=== PATIENT | female | born 1940 | race Caucasian/White ===

== ENCOUNTER 2021-01-26 08:12 | Inpatient (IN) ==
[2021-01-26] MEDS ORDERED: ONDANSETRON 4 MG/2 ML VIAL IV STA (09:12)
[2021-01-26] MEDS ORDERED: PANTOPRAZOLE INJ 80 MG in SODIUM CHLORIDE 0.9% 100 ML IV STA (09:12)
[2021-01-26] MEDS ORDERED: SODIUM CHLORIDE 0.9% 1,000 ML IV STA (09:12)
[2021-01-26 09:18] LABS: Basophils # 0.1 10*3/uL (0.0-0.2); Basophils % 0.6 % (0.0-0.8); Eosinophils # 0.2 10*3/uL (0.0-0.87); Hematocrit 34.6 VOL% (35.7-47.0); Immature Granulocytes % 0.3 %; Immature Granulocytes Absolute 0.02 #; Lymphocytes # 1.8 10*3/uL (1.4-4.0); Lymphocytes % 22.5 % (21.3-54.2); Mean Corpuscular HGB Conc 31.8 GM/DL (32-36); Mean Corpuscular Volume 87.8 FL (87-102); Mean Platelet Volume 9.8 FL (9.6-12.0); Monocytes % 6.9 % (1.7-12.7); Neutrophils % 67.7 % (38.7-73.9); Platelet Count 273 T/CUMM (130-400); Red Blood Count 3.94 MC/CUMM (3.8-5.5); Red Cell Distribution Width 15.6 % (9.3-17.3)
[2021-01-26 09:27] LABS: INR 1.4; PT Patient Result 14.5 SECS (9.8-11.9); Partial Thromboplastin Time 53.4 SECS (23.9-33.8)
[2021-01-26] MEDS ORDERED: PANTOPRAZOLE 40 MG VIAL IV ONE ×2 (09:30→09:31)
[2021-01-26 09:48] LABS: Albumin 3.2 G/DL (3.4-5.0); Calcium 9.3 MG/DL (8.5-10.1); Osmolality,Calculated 284.3 MOS/KG (273-304); Potassium 3.3 MMOL/L (3.5-5.1); Total Protein 6.9 G/DL (6.4-8.3)
[2021-01-26] MEDS ORDERED: GLUCAGON 1 MG VIAL IM PRN (10:56)
[2021-01-26] MEDS ORDERED: ONDANSETRON 4 MG/2 ML VIAL IV PRN (10:56)
[2021-01-26] MEDS ORDERED: DEXTROSE 50% 25 GM/50 ML VIAL IV PRN (10:56)
[2021-01-26] MEDS ORDERED: SODIUM CHLORIDE 0.9% 1,000 ML IV PRN (11:01)
[2021-01-26] MEDS: LACTATED RINGERS 1,000 ML IV SCH ×2 (13:50→22:12)
[2021-01-26] MEDS: PANTOPRAZOLE INJ 200 MG in SODIUM CHLORIDE 0.9% 250 ML IV SCH (13:50)
[2021-01-26] MEDS: MORPHINE 4 MG/1 ML VIAL IV PRN (13:51)
[2021-01-26 14:13] LABS: Hematocrit 32.8 VOL% (35.7-47.0); Hemoglobin 10.5 GM/DL (12.0-16.0)
[2021-01-26 17:06] LABS: Hematocrit 29.8 VOL% (35.7-47.0); Hemoglobin 9.8 GM/DL (12.0-16.0)
[2021-01-26 21:11] LABS: Hematocrit 28.3 VOL% (35.7-47.0); Hemoglobin 8.9 GM/DL (12.0-16.0)
[2021-01-27 01:06] LABS: Hematocrit 26.8 VOL% (35.7-47.0); Hemoglobin 8.4 GM/DL (12.0-16.0)
[2021-01-27] MEDS: LACTATED RINGERS 1,000 ML IV SCH ×3 (05:37→22:08)
[2021-01-27] MEDS: MORPHINE 4 MG/1 ML VIAL IV PRN (05:50)
[2021-01-27 07:46] LABS: Basophils % 0.7 % (0.0-0.8); Eosinophils # 0.2 10*3/uL (0.0-0.87); Eosinophils % 3.7 % (0.00-10.9); Hematocrit 26.3 VOL% (35.7-47.0); Hemoglobin 8.5 GM/DL (12.0-16.0); Immature Granulocytes % 0.2 %; Immature Granulocytes Absolute 0.01 #; Lymphocytes # 1.9 10*3/uL (1.4-4.0); Lymphocytes % 34.3 % (21.3-54.2); Mean Corpuscular HGB Conc 32.3 GM/DL (32-36); Mean Platelet Volume 9.9 FL (9.6-12.0); Monocytes % 7.2 % (1.7-12.7); Neutrophils % 53.9 % (38.7-73.9); Platelet Count 199 T/CUMM (130-400); Red Blood Count 2.99 MC/CUMM (3.8-5.5); Red Cell Distribution Width 15.8 % (9.3-17.3); White Blood Count 5.4 T/CUMM (4-12)
[2021-01-27] MEDS ORDERED: POTASSIUM CHLORIDE RIDER 10 MEQ in PREMIX 1 EACH IV PRN (08:03)
[2021-01-27 08:29] LABS: Albumin 2.5 G/DL (3.4-5.0); Bilirubin,Total 1.3 MG/DL (0.2-1.0); Calcium 8.1 MG/DL (8.5-10.1); Osmolality,Calculated 282.1 MOS/KG (273-304); Potassium 3.6 MMOL/L (3.5-5.1)
[2021-01-27 11:54] LABS: Hematocrit 31.8 VOL% (35.7-47.0); Hemoglobin 10.1 GM/DL (12.0-16.0)
[2021-01-27 13:45] LABS: Hematocrit 28.7 VOL% (35.7-47.0); Hemoglobin 9.2 GM/DL (12.0-16.0)
[2021-01-27] MEDS: PANTOPRAZOLE INJ 200 MG in SODIUM CHLORIDE 0.9% 250 ML IV SCH (16:14)
[2021-01-27 19:38] LABS: Hematocrit 26.7 VOL% (35.7-47.0); Hemoglobin 8.5 GM/DL (12.0-16.0)
[2021-01-28] MEDS: MORPHINE 4 MG/1 ML VIAL IV PRN ×2 (01:24→22:06)
[2021-01-28 02:00] LABS: Hematocrit 27.1 VOL% (35.7-47.0); Hemoglobin 8.7 GM/DL (12.0-16.0)
[2021-01-28 02:11] LABS: Calcium 8.1 MG/DL (8.5-10.1)
[2021-01-28 07:40] LABS: Hemoglobin 9.3 GM/DL (12.0-16.0)
[2021-01-28] MEDS ORDERED: POTASSIUM CHLORIDE 20 MEQ TABLET PO ONE (07:44)
[2021-01-28 13:21] LABS: Hematocrit 27.9 VOL% (35.7-47.0)
[2021-01-28] MEDS: LACTATED RINGERS 1,000 ML IV SCH ×3 (14:30→22:07)
[2021-01-28] MEDS: PANTOPRAZOLE INJ 200 MG in SODIUM CHLORIDE 0.9% 250 ML IV SCH (16:42)
[2021-01-28 19:45] LABS: Hematocrit 26.1 VOL% (35.7-47.0); Hemoglobin 8.7 GM/DL (12.0-16.0)
[2021-01-29 01:13] LABS: Calcium 8.1 MG/DL (8.5-10.1); Osmolality,Calculated 286.7 MOS/KG (273-304); Potassium 3.8 MMOL/L (3.5-5.1)
[2021-01-29 01:21] LABS: Hematocrit 27.4 VOL% (35.7-47.0)
[2021-01-29 05:01] LABS: Basophils % 0.6 % (0.0-0.8); Eosinophils # 0.2 10*3/uL (0.0-0.87); Eosinophils % 3.9 % (0.00-10.9); Hematocrit 25.1 VOL% (35.7-47.0); Hemoglobin 8.2 GM/DL (12.0-16.0); Immature Granulocytes % 0.4 %; Immature Granulocytes Absolute 0.02 #; Lymphocytes # 2.5 10*3/uL (1.4-4.0); Mean Corpuscular HGB Conc 32.7 GM/DL (32-36); Mean Corpuscular Volume 87.2 FL (87-102); Mean Platelet Volume 9.8 FL (9.6-12.0); Monocytes % 8.8 % (1.7-12.7); Neutrophils % 40.3 % (38.7-73.9); Platelet Count 201 T/CUMM (130-400); Red Blood Count 2.88 MC/CUMM (3.8-5.5); Red Cell Distribution Width 15.6 % (9.3-17.3); White Blood Count 5.3 T/CUMM (4-12)
[2021-01-29] MEDS: LACTATED RINGERS 1,000 ML IV SCH (06:11)
[2021-01-29 06:54] LABS: Hematocrit 24.8 VOL% (35.7-47.0); Hemoglobin 8.2 GM/DL (12.0-16.0)
[2021-01-29] MEDS ORDERED: LACTATED RINGERS 1,000 ML IV SCH (08:00)
[2021-01-29] MEDS ORDERED: ALBUTEROL/IPRATROPIUM 3 ML NEB RESP TX ONE (10:39)
[2021-01-29] MEDS ORDERED: LIDOCAINE 2% 5 ML VIAL ONE (11:44)
[2021-01-29] MEDS ORDERED: propofoL 200 MG/20 ML VIAL IV ONE (11:44)
[2021-01-29 16:25] VITALS: BP 133/60
[2021-01-29] MEDS ORDERED: PANTOPRAZOLE 40 MG VIAL IV SCH (21:00)
== END 2021-01-29 18:00 | disposition home or self-care (01) | DRG 392 ==
LOC: N.ED 08:12 → INTOOBSV 10:56 → SUATTDRO 10:56 → OBSVTOIN 10:56 → N.EDINP 10:56 → N.5E 13:00
PROVIDERS: ADMIT Emergency Medicine; ATTEND Internal Medicine

== ENCOUNTER 2021-03-23 11:39 | Inpatient (IN) ==
[2021-03-23] MEDS ORDERED: PANTOPRAZOLE 40 MG VIAL IV STA (13:34)
[2021-03-23] MEDS ORDERED: ONDANSETRON 4 MG/2 ML VIAL IV PRN ×2 (13:34→17:17)
[2021-03-23] MEDS ORDERED: SODIUM CHLORIDE 0.9% 1,000 ML IV STA (13:34)
[2021-03-23 14:21] LABS: Basophils % 0.4 % (0.0-0.8); Eosinophils # 0.1 10*3/uL (0.0-0.87); Hematocrit 25.6 VOL% (35.7-47.0); Hemoglobin 8.3 GM/DL (12.0-16.0); Immature Granulocytes % 0.1 %; Immature Granulocytes Absolute 0.01 #; Lymphocytes # 1.5 10*3/uL (1.4-4.0); Lymphocytes % 21.2 % (21.3-54.2); Mean Corpuscular HGB Conc 32.4 GM/DL (32-36); Mean Corpuscular Volume 91.1 FL (87-102); Monocytes % 9.1 % (1.7-12.7); Neutrophils % 67.2 % (38.7-73.9); Platelet Count 258 T/CUMM (130-400); Red Blood Count 2.81 MC/CUMM (3.8-5.5); Red Cell Distribution Width 16.2 % (9.3-17.3); White Blood Count 6.9 T/CUMM (4-12)
[2021-03-23 14:37] LABS: INR 1.1; PT Patient Result 12.2 SECS (9.8-11.9); Partial Thromboplastin Time 31.9 SECS (23.9-33.8)
[2021-03-23 14:45] LABS: Albumin 3.3 G/DL (3.4-5.0); Calcium 8.3 MG/DL (8.5-10.1); Osmolality,Calculated 271.8 MOS/KG (273-304); Potassium 3.8 MMOL/L (3.5-5.1); Total Protein 6.4 G/DL (6.4-8.2)
[2021-03-23] MEDS: ALBUTEROL/IPRATROPIUM 3 ML NEB RESP TX SCH (19:27)
[2021-03-23] MEDS: SODIUM CHLORIDE 0.9% 1,000 ML IV SCH (19:56)
[2021-03-23] MEDS: ACETAMINOPHEN 325 MG TABLET PO PRN (20:52)
[2021-03-23] MEDS: DOCUSATE SODIUM 100 MG CAPSULE PO SCH (20:58)
[2021-03-24] MEDS: ALBUTEROL/IPRATROPIUM 3 ML NEB RESP TX SCH ×4 (00:14→20:25)
[2021-03-24] MEDS: SODIUM CHLORIDE 0.9% 1,000 ML IV SCH ×3 (02:20→22:45)
[2021-03-24 06:39] LABS: Basophils # 0.1 10*3/uL (0.0-0.2); Basophils % 0.9 % (0.0-0.8); Eosinophils # 0.3 10*3/uL (0.0-0.87); Eosinophils % 4.5 % (0.00-10.9); Hematocrit 25.4 VOL% (35.7-47.0); Hemoglobin 7.7 GM/DL (12.0-16.0); Immature Granulocytes % 0.9 %; Immature Granulocytes Absolute 0.05 #; Lymphocytes # 1.9 10*3/uL (1.4-4.0); Lymphocytes % 33.8 % (21.3-54.2); Mean Corpuscular HGB Conc 30.3 GM/DL (32-36); Mean Corpuscular Volume 99.2 FL (87-102); Mean Platelet Volume 10.1 FL (9.6-12.0); Monocytes % 11.1 % (1.7-12.7); Neutrophils % 48.8 % (38.7-73.9); Platelet Count 217 T/CUMM (130-400); Red Blood Count 2.56 MC/CUMM (3.8-5.5); Red Cell Distribution Width 16.9 % (9.3-17.3); White Blood Count 5.5 T/CUMM (4-12)
[2021-03-24 06:51] LABS: Acanthocytes Few; Anisocytosis 1+; Hypochromasia 1+; Microcytosis 1+
[2021-03-24 06:52] LABS: Ovalocytes Few; Platelet Estimate Normal
[2021-03-24] MEDS: DOCUSATE SODIUM 100 MG CAPSULE PO SCH ×2 (10:36→22:44)
[2021-03-24] MEDS: PANTOPRAZOLE 40 MG TABLET PO SCH (10:36)
[2021-03-24] MEDS: MELATONIN 3 MG TABLET PO SCH (22:42)
[2021-03-24] MEDS: LIDOCAINE 5% PATCH TRANSDERM SCH (22:42)
[2021-03-24] MEDS: ATORVASTATIN 10 MG TABLET PO SCH (22:43)
[2021-03-24] MEDS: CETIRIZINE 10 MG TABLET PO SCH (22:43)
[2021-03-24] MEDS: GABAPENTIN 300 MG CAPSULE PO SCH (22:43)
[2021-03-24] MEDS: FERROUS SULFATE 325 MG TABLET PO SCH (22:43)
[2021-03-24] MEDS: LATANOPROST 0.005% OPH SOLN 2.5 ML BOTTLE RIGHT EYE SCH (22:44)
[2021-03-24] MEDS: TIMOLOL 0.5% OPH SOLN 5 ML BOTTLE LEFT EYE SCH (22:44)
[2021-03-25] MEDS: ALBUTEROL/IPRATROPIUM 3 ML NEB RESP TX SCH ×4 (01:00→19:05)
[2021-03-25 05:58] LABS: Basophils % 0.5 % (0.0-0.8); Eosinophils # 0.2 10*3/uL (0.0-0.87); Eosinophils % 2.8 % (0.00-10.9); Hematocrit 22.9 VOL% (35.7-47.0); Hemoglobin 7.2 GM/DL (12.0-16.0); Immature Granulocytes % 0.4 %; Immature Granulocytes Absolute 0.02 #; Lymphocytes # 1.5 10*3/uL (1.4-4.0); Lymphocytes % 25.7 % (21.3-54.2); Mean Corpuscular HGB Conc 31.4 GM/DL (32-36); Mean Corpuscular Volume 94.2 FL (87-102); Mean Platelet Volume 9.1 FL (9.6-12.0); Neutrophils % 59.6 % (38.7-73.9); Platelet Count 249 T/CUMM (130-400); Red Blood Count 2.43 MC/CUMM (3.8-5.5); Red Cell Distribution Width 16.4 % (9.3-17.3); White Blood Count 5.7 T/CUMM (4-12)
[2021-03-25 06:16] LABS: Alanine Aminotransferase < 9 U/L (13-56); Albumin 2.3 G/DL (3.4-5.0); Alkaline Phosphatase 65 U/L (45-117); Aspartate Amino Transferase 17 U/L (0-37); Blood Urea Nitrogen 3 MG/DL (7-18); Calcium 7.8 MG/DL (8.5-10.1); Carbon Dioxide 26 MMOL/L (21-32); Estimated Glom Filtration Rate 101 ML/MIN; Glucose 86 MG/DL (74-106); Osmolality,Calculated 281.8 MOS/KG (273-304); Potassium 3.3 MMOL/L (3.5-5.1); Sodium 144 MMOL/L (136-145); Total Protein 5.2 G/DL (6.4-8.2)
[2021-03-25] MEDS: FERROUS SULFATE 325 MG TABLET PO SCH ×3 (09:21→20:56)
[2021-03-25] MEDS: POLYETHYLENE GLYCOL POWDER 17 GM PACK PO PRN (09:21)
[2021-03-25] MEDS: SODIUM CHLORIDE 0.9% 1,000 ML IV SCH ×2 (09:21→13:02)
[2021-03-25] MEDS: TIMOLOL 0.5% OPH SOLN 5 ML BOTTLE LEFT EYE SCH ×2 (09:21→21:01)
[2021-03-25] MEDS: DOCUSATE SODIUM 100 MG CAPSULE PO SCH ×2 (09:21→20:56)
[2021-03-25] MEDS: LIDOCAINE 5% PATCH TRANSDERM SCH (09:21)
[2021-03-25] MEDS: PANTOPRAZOLE 40 MG TABLET PO SCH (09:21)
[2021-03-25] MEDS ORDERED: SODIUM CHLORIDE 0.9% 1,000 ML IV PRN ×2 (11:28→11:30)
[2021-03-25] MEDS ORDERED: FUROSEMIDE 20 MG/2 ML VIAL IV ONE ×2 (11:31→18:30)
[2021-03-25] MEDS ORDERED: LORATADINE 10 MG TABLET PO PRN (11:33)
[2021-03-25] MEDS ORDERED: POTASSIUM CHLORIDE 20 MEQ TABLET PO ONE (12:02)
[2021-03-25] MEDS: methylPREDNISolone SOD SUC 40 MG/1 ML VIAL IV SCH ×2 (12:35→20:53)
[2021-03-25] MEDS: FLUTICASONE 50 MCG NASAL SPRAY 16 GM BOTTLE BOTH NARES SCH ×2 (12:38→21:02)
[2021-03-25] MEDS: AZITHROMYCIN INJ 500 MG in SODIUM CHLORIDE 0.9% 250 ML IV SCH (12:38)
[2021-03-25] MEDS: CETIRIZINE 10 MG TABLET PO SCH (20:56)
[2021-03-25] MEDS: MELATONIN 3 MG TABLET PO SCH (20:56)
[2021-03-25] MEDS: ATORVASTATIN 10 MG TABLET PO SCH (20:56)
[2021-03-25] MEDS: GABAPENTIN 300 MG CAPSULE PO SCH (20:57)
[2021-03-25] MEDS: LATANOPROST 0.005% OPH SOLN 2.5 ML BOTTLE RIGHT EYE SCH (21:01)
[2021-03-26] MEDS: ALBUTEROL/IPRATROPIUM 3 ML NEB RESP TX SCH ×4 (00:24→21:26)
[2021-03-26] MEDS ORDERED: FAMOTIDINE 20 MG/2 ML VIAL IV ONE (00:32)
[2021-03-26] MEDS ORDERED: ALUM/MAG/SIMETH/LIDO VISC 1:1 30 ML BOTTLE PO PRN (00:34)
[2021-03-26] MEDS: ACETAMINOPHEN 325 MG TABLET PO PRN (02:47)
[2021-03-26 05:21] LABS: Basophils % 0.1 % (0.0-0.8); Neutrophils % 83.6 % (38.7-73.9); Red Cell Distribution Width 15.9 % (9.3-17.3)
[2021-03-26 05:37] LABS: Hematocrit 31.8 VOL% (35.7-47.0); Immature Granulocytes % 0.7 %; Immature Granulocytes Absolute 0.05 #; Lymphocytes # 0.9 10*3/uL (1.4-4.0); Lymphocytes % 12.5 % (21.3-54.2); Mean Corpuscular HGB Conc 33.6 GM/DL (32-36); Mean Corpuscular Volume 89.8 FL (87-102); Mean Platelet Volume 9.2 FL (9.6-12.0); Monocytes % 3.1 % (1.7-12.7); Platelet Count 276 T/CUMM (130-400); White Blood Count 7.1 T/CUMM (4-12)
[2021-03-26 05:39] LABS: Hemoglobin 10.7 GM/DL (12.0-16.0); Red Blood Count 3.54 MC/CUMM (3.8-5.5)
[2021-03-26 05:45] LABS: Osmolality,Calculated 278.5 MOS/KG (273-304); Potassium 3.5 MMOL/L (3.5-5.1)
[2021-03-26] MEDS: methylPREDNISolone SOD SUC 40 MG/1 ML VIAL IV SCH ×2 (06:24→16:37)
[2021-03-26] MEDS: SODIUM CHLORIDE 0.9% 1,000 ML IV SCH ×3 (06:31→21:12)
[2021-03-26] MEDS: FERROUS SULFATE 325 MG TABLET PO SCH ×3 (08:50→21:13)
[2021-03-26] MEDS: PANTOPRAZOLE 40 MG TABLET PO SCH ×2 (08:50→21:14)
[2021-03-26] MEDS: FLUTICASONE 50 MCG NASAL SPRAY 16 GM BOTTLE BOTH NARES SCH ×2 (10:32→21:16)
[2021-03-26] MEDS: TIMOLOL 0.5% OPH SOLN 5 ML BOTTLE LEFT EYE SCH ×2 (10:33→21:13)
[2021-03-26] MEDS: LIDOCAINE 5% PATCH TRANSDERM SCH (10:35)
[2021-03-26] MEDS: DOCUSATE SODIUM 100 MG CAPSULE PO SCH ×2 (13:18→21:15)
[2021-03-26] MEDS: POLYETHYLENE GLYCOL POWDER 17 GM PACK PO PRN (13:29)
[2021-03-26] MEDS: AZITHROMYCIN INJ 500 MG in SODIUM CHLORIDE 0.9% 250 ML IV SCH (16:39)
[2021-03-26] MEDS: LATANOPROST 0.005% OPH SOLN 2.5 ML BOTTLE RIGHT EYE SCH (21:13)
[2021-03-26] MEDS: ATORVASTATIN 10 MG TABLET PO SCH (21:14)
[2021-03-26] MEDS: CETIRIZINE 10 MG TABLET PO SCH (21:14)
[2021-03-26] MEDS: GABAPENTIN 300 MG CAPSULE PO SCH (21:15)
[2021-03-26] MEDS: MELATONIN 3 MG TABLET PO SCH (21:15)
[2021-03-26] MEDS ORDERED: TEMAZEPAM 7.5 MG CAPSULE PO PRN (22:02)
[2021-03-27] MEDS: methylPREDNISolone SOD SUC 40 MG/1 ML VIAL IV SCH ×3 (00:12→16:17)
[2021-03-27] MEDS: ALBUTEROL/IPRATROPIUM 3 ML NEB RESP TX SCH ×4 (02:00→16:40)
[2021-03-27 05:43] LABS: Hematocrit 28.5 VOL% (35.7-47.0); Hemoglobin 9.1 GM/DL (12.0-16.0); Immature Granulocytes % 0.8 %; Immature Granulocytes Absolute 0.05 #; Lymphocytes % 15.4 % (21.3-54.2); Mean Corpuscular HGB Conc 31.9 GM/DL (32-36); Mean Corpuscular Volume 91.6 FL (87-102); Mean Platelet Volume 9.1 FL (9.6-12.0); Monocytes % 3.3 % (1.7-12.7); Neutrophils % 80.5 % (38.7-73.9); Platelet Count 268 T/CUMM (130-400); Red Blood Count 3.11 MC/CUMM (3.8-5.5); Red Cell Distribution Width 16.2 % (9.3-17.3); White Blood Count 6.3 T/CUMM (4-12)
[2021-03-27] MEDS: SODIUM CHLORIDE 0.9% 1,000 ML IV SCH ×3 (05:43→15:27)
[2021-03-27 05:44] LABS: Calcium 7.5 MG/DL (8.5-10.1); Potassium 3.2 MMOL/L (3.5-5.1)
[2021-03-27] MEDS: POTASSIUM CHLORIDE RIDER 10 MEQ in PREMIX 1 EACH IV PRN ×3 (08:10→17:10)
[2021-03-27] MEDS: FLUTICASONE 50 MCG NASAL SPRAY 16 GM BOTTLE BOTH NARES SCH ×2 (08:48→20:39)
[2021-03-27] MEDS: FERROUS SULFATE 325 MG TABLET PO SCH ×3 (08:48→22:40)
[2021-03-27] MEDS: TIMOLOL 0.5% OPH SOLN 5 ML BOTTLE LEFT EYE SCH ×2 (08:48→20:37)
[2021-03-27] MEDS: DOCUSATE SODIUM 100 MG CAPSULE PO SCH ×2 (08:48→22:40)
[2021-03-27] MEDS: PANTOPRAZOLE 40 MG TABLET PO SCH (08:48)
[2021-03-27] MEDS: LIDOCAINE 5% PATCH TRANSDERM SCH (09:19)
[2021-03-27] MEDS ORDERED: fentaNYL 100 MCG/2 ML VIAL ONE (11:55)
[2021-03-27] MEDS ORDERED: BUPIVACAINE MPF 0.25% 30 ML VIAL ONE (12:10)
[2021-03-27] MEDS ORDERED: LIDOCAINE 1%/EPI INJ 20 ML VIAL ONE (12:10)
[2021-03-27] MEDS ORDERED: MINERAL OIL/PETROLATUM OPH OINT 3.5 GM TUBE ONE (12:50)
[2021-03-27] MEDS ORDERED: SEVOFLURANE 1 UNIT/15 MINUTE INH ONE ×4 (12:51→13:56)
[2021-03-27] MEDS ORDERED: SUCCINYLCHOLINE 200 MG/10 ML VIAL ONE (12:51)
[2021-03-27] MEDS ORDERED: ONDANSETRON 4 MG/2 ML VIAL ONE (12:51)
[2021-03-27] MEDS ORDERED: ROCURONIUM 50 MG/5 ML VIAL IV ONE (12:51)
[2021-03-27] MEDS ORDERED: propofoL 200 MG/20 ML VIAL IV ONE (12:51)
[2021-03-27] MEDS ORDERED: ETOMIDATE 40 MG/20 ML VIAL IV ONE (12:51)
[2021-03-27] MEDS ORDERED: LIDOCAINE 2% 5 ML VIAL ONE (12:51)
[2021-03-27] MEDS ORDERED: ACETAMINOPHEN INJ 1,000 MG/100 ML VIAL IV ONE (12:51)
[2021-03-27] MEDS ORDERED: LACTATED RINGERS 1,000 ML IV ONE (13:26)
[2021-03-27] MEDS ORDERED: SUGAMMADEX 200 MG/2 ML VIAL IV ONE (13:45)
[2021-03-27] MEDS: HYDROmorphone 2 MG/1 ML VIAL IV PRN ×3 (14:10→14:27)
[2021-03-27] MEDS ORDERED: HYDROmorphone 2 MG/1 ML VIAL ONE (14:12)
[2021-03-27] MEDS ORDERED: ONDANSETRON 4 MG/2 ML VIAL IV PRN (14:22)
[2021-03-27] MEDS: MORPHINE 4 MG/1 ML VIAL IV PRN ×2 (16:17→23:15)
[2021-03-27] MEDS: AZITHROMYCIN INJ 500 MG in SODIUM CHLORIDE 0.9% 250 ML IV SCH (17:11)
[2021-03-27] MEDS: LATANOPROST 0.005% OPH SOLN 2.5 ML BOTTLE RIGHT EYE SCH (20:38)
[2021-03-27] MEDS: PANTOPRAZOLE 40 MG VIAL IV SCH (20:38)
[2021-03-27] MEDS: ATORVASTATIN 10 MG TABLET PO SCH (22:40)
[2021-03-27] MEDS: CETIRIZINE 10 MG TABLET PO SCH (22:41)
[2021-03-27] MEDS: GABAPENTIN 300 MG CAPSULE PO SCH (22:41)
[2021-03-27] MEDS: MELATONIN 3 MG TABLET PO SCH (22:41)
[2021-03-28] MEDS: SODIUM CHLORIDE 0.9% 1,000 ML IV SCH ×3 (00:03→21:34)
[2021-03-28] MEDS: methylPREDNISolone SOD SUC 40 MG/1 ML VIAL IV SCH ×3 (00:06→16:24)
[2021-03-28] MEDS: MORPHINE 4 MG/1 ML VIAL IV PRN ×2 (04:09→12:32)
[2021-03-28 06:04] LABS: Basophils % 0.2 % (0.0-0.8); Hematocrit 33.5 VOL% (35.7-47.0); Hemoglobin 10.2 GM/DL (12.0-16.0); Immature Granulocytes % 1.4 %; Immature Granulocytes Absolute 0.09 #; Lymphocytes % 14.5 % (21.3-54.2); Mean Corpuscular HGB Conc 30.4 GM/DL (32-36); Mean Corpuscular Volume 96.5 FL (87-102); Mean Platelet Volume 10.6 FL (9.6-12.0); Monocytes % 5.9 % (1.7-12.7); Platelet Count 143 T/CUMM (130-400); Red Blood Count 3.47 MC/CUMM (3.8-5.5); Red Cell Distribution Width 16.2 % (9.3-17.3); White Blood Count 6.6 T/CUMM (4-12)
[2021-03-28 06:39] LABS: Albumin 2.5 G/DL (3.4-5.0); Bilirubin,Total 1.1 MG/DL (0.2-1.0); Calcium 7.2 MG/DL (8.5-10.1); Osmolality,Calculated 280.1 MOS/KG (273-304); Potassium 4.2 MMOL/L (3.5-5.1); Total Protein 5.6 G/DL (6.4-8.2)
[2021-03-28] MEDS: ALBUTEROL/IPRATROPIUM 3 ML NEB RESP TX SCH ×3 (07:09→20:22)
[2021-03-28] MEDS: DOCUSATE SODIUM 100 MG CAPSULE PO SCH ×2 (08:45→21:34)
[2021-03-28] MEDS: FERROUS SULFATE 325 MG TABLET PO SCH ×3 (08:45→21:33)
[2021-03-28] MEDS: PANTOPRAZOLE 40 MG VIAL IV SCH ×2 (08:52→21:32)
[2021-03-28] MEDS: LIDOCAINE 5% PATCH TRANSDERM SCH (08:54)
[2021-03-28] MEDS: FLUTICASONE 50 MCG NASAL SPRAY 16 GM BOTTLE BOTH NARES SCH ×2 (09:40→21:31)
[2021-03-28] MEDS: TIMOLOL 0.5% OPH SOLN 5 ML BOTTLE LEFT EYE SCH ×2 (09:41→21:31)
[2021-03-28] MEDS: AZITHROMYCIN INJ 500 MG in SODIUM CHLORIDE 0.9% 250 ML IV SCH (12:33)
[2021-03-28] MEDS: LATANOPROST 0.005% OPH SOLN 2.5 ML BOTTLE RIGHT EYE SCH (21:31)
[2021-03-28] MEDS: CETIRIZINE 10 MG TABLET PO SCH (21:32)
[2021-03-28] MEDS: GABAPENTIN 300 MG CAPSULE PO SCH (21:32)
[2021-03-28] MEDS: ATORVASTATIN 10 MG TABLET PO SCH (21:33)
[2021-03-28] MEDS: MELATONIN 3 MG TABLET PO SCH (21:33)
[2021-03-29] MEDS: ALBUTEROL/IPRATROPIUM 3 ML NEB RESP TX SCH ×6 (00:23→20:53)
[2021-03-29 05:16] LABS: Basophils % 0.2 % (0.0-0.8); Hematocrit 29.8 VOL% (35.7-47.0); Hemoglobin 9.9 GM/DL (12.0-16.0); Immature Granulocytes % 2.3 %; Immature Granulocytes Absolute 0.13 #; Lymphocytes # 1.3 10*3/uL (1.4-4.0); Lymphocytes % 23.2 % (21.3-54.2); Mean Corpuscular HGB Conc 33.2 GM/DL (32-36); Mean Corpuscular Volume 89.8 FL (87-102); Monocytes % 9.4 % (1.7-12.7); Neutrophils % 64.9 % (38.7-73.9); Platelet Count 242 T/CUMM (130-400); Red Blood Count 3.32 MC/CUMM (3.8-5.5); Red Cell Distribution Width 15.7 % (9.3-17.3); White Blood Count 5.6 T/CUMM (4-12)
[2021-03-29 05:28] LABS: Albumin 2.4 G/DL (3.4-5.0); Bilirubin,Total 1.5 MG/DL (0.2-1.0); Calcium 6.8 MG/DL (8.5-10.1); Osmolality,Calculated 281.1 MOS/KG (273-304); Potassium 3.3 MMOL/L (3.5-5.1)
[2021-03-29 05:54] LABS: Hypochromasia 1+; Lymphocytes 17 % (20-55); Microcytosis 1+; Platelet Estimate Adequate; Segmented Neutrophils 75 % (50-85); Total Cells Counted 100
[2021-03-29] MEDS: BISACODYL 5 MG TABLET PO SCH (09:44)
[2021-03-29] MEDS: DOCUSATE SODIUM 100 MG CAPSULE PO SCH ×2 (09:44→20:42)
[2021-03-29] MEDS: FLUTICASONE 50 MCG NASAL SPRAY 16 GM BOTTLE BOTH NARES SCH ×2 (09:45→20:40)
[2021-03-29] MEDS: FERROUS SULFATE 325 MG TABLET PO SCH ×3 (09:45→20:46)
[2021-03-29] MEDS: TIMOLOL 0.5% OPH SOLN 5 ML BOTTLE LEFT EYE SCH ×2 (09:46→20:41)
[2021-03-29] MEDS: methylPREDNISolone SOD SUC 40 MG/1 ML VIAL IV SCH ×4 (09:48→23:53)
[2021-03-29] MEDS: LIDOCAINE 5% PATCH TRANSDERM SCH (09:50)
[2021-03-29] MEDS: PANTOPRAZOLE 40 MG VIAL IV SCH ×2 (09:51→20:42)
[2021-03-29] MEDS: POLYETHYLENE GLYCOL POWDER 17 GM PACK PO PRN (09:55)
[2021-03-29] MEDS: AZITHROMYCIN INJ 500 MG in SODIUM CHLORIDE 0.9% 250 ML IV SCH (12:22)
[2021-03-29] MEDS: POTASSIUM CHLORIDE 20 MEQ TABLET PO PRN ×2 (12:23→14:37)
[2021-03-29] MEDS ORDERED: RIVAROXABAN 2.5 MG TABLET PO ONE (14:09)
[2021-03-29] MEDS ORDERED: ENOXAPARIN 80 MG/0.8 ML SYRINGE SUBCUT ONE (14:22)
[2021-03-29] MEDS: SODIUM CHLORIDE 0.9% 1,000 ML IV SCH ×2 (14:32→21:41)
[2021-03-29] MEDS: ATORVASTATIN 10 MG TABLET PO SCH (20:41)
[2021-03-29] MEDS: GABAPENTIN 300 MG CAPSULE PO SCH (20:41)
[2021-03-29] MEDS: LATANOPROST 0.005% OPH SOLN 2.5 ML BOTTLE RIGHT EYE SCH (20:41)
[2021-03-29] MEDS: MELATONIN 3 MG TABLET PO SCH (20:42)
[2021-03-29] MEDS: CETIRIZINE 10 MG TABLET PO SCH (20:42)
[2021-03-29] MEDS ORDERED: RIVAROXABAN 2.5 MG TABLET PO SCH (21:00)
[2021-03-30] MEDS: ALBUTEROL/IPRATROPIUM 3 ML NEB RESP TX SCH ×4 (03:02→19:41)
[2021-03-30 06:06] LABS: Basophils % 0.2 % (0.0-0.8); Hematocrit 32.4 VOL% (35.7-47.0); Hemoglobin 10.5 GM/DL (12.0-16.0); Lymphocytes % 19.5 % (21.3-54.2); Mean Corpuscular HGB Conc 32.4 GM/DL (32-36); Mean Corpuscular Volume 91.5 FL (87-102); Mean Platelet Volume 9.7 FL (9.6-12.0); Neutrophils % 71.3 % (38.7-73.9); Platelet Count 218 T/CUMM (130-400); Red Blood Count 3.54 MC/CUMM (3.8-5.5); Red Cell Distribution Width 15.5 % (9.3-17.3)
[2021-03-30 06:34] LABS: Albumin 2.4 G/DL (3.4-5.0); Bilirubin,Total 1.7 MG/DL (0.2-1.0); Calcium 7.3 MG/DL (8.5-10.1); Osmolality,Calculated 285.8 MOS/KG (273-304); Potassium 3.6 MMOL/L (3.5-5.1); Total Protein 5.1 G/DL (6.4-8.2)
[2021-03-30] MEDS: PANTOPRAZOLE 40 MG VIAL IV SCH ×2 (08:30→21:23)
[2021-03-30] MEDS: DOCUSATE SODIUM 100 MG CAPSULE PO SCH ×2 (08:30→21:23)
[2021-03-30] MEDS: FERROUS SULFATE 325 MG TABLET PO SCH ×3 (08:30→21:23)
[2021-03-30] MEDS: methylPREDNISolone SOD SUC 40 MG/1 ML VIAL IV SCH ×3 (08:31→21:29)
[2021-03-30] MEDS: LIDOCAINE 5% PATCH TRANSDERM SCH (09:14)
[2021-03-30] MEDS: RIVAROXABAN 2.5 MG TABLET PO SCH ×2 (10:08→21:23)
[2021-03-30] MEDS: TIMOLOL 0.5% OPH SOLN 5 ML BOTTLE LEFT EYE SCH ×2 (10:08→21:23)
[2021-03-30] MEDS: SODIUM CHLORIDE 0.9% 1,000 ML IV SCH ×3 (10:08→21:23)
[2021-03-30] MEDS: FLUTICASONE 50 MCG NASAL SPRAY 16 GM BOTTLE BOTH NARES SCH ×2 (10:08→21:30)
[2021-03-30] MEDS: BISACODYL 5 MG TABLET PO SCH (10:21)
[2021-03-30] MEDS: AZITHROMYCIN INJ 500 MG in SODIUM CHLORIDE 0.9% 250 ML IV SCH (11:51)
[2021-03-30] MEDS: MELATONIN 3 MG TABLET PO SCH (21:23)
[2021-03-30] MEDS: ATORVASTATIN 10 MG TABLET PO SCH (21:23)
[2021-03-30] MEDS: GABAPENTIN 300 MG CAPSULE PO SCH (21:23)
[2021-03-30] MEDS: ACETAMINOPHEN 325 MG TABLET PO PRN (21:28)
[2021-03-30] MEDS: CETIRIZINE 10 MG TABLET PO SCH (21:31)
[2021-03-30] MEDS: LATANOPROST 0.005% OPH SOLN 2.5 ML BOTTLE RIGHT EYE SCH (21:31)
[2021-03-31] MEDS: ALBUTEROL/IPRATROPIUM 3 ML NEB RESP TX SCH ×4 (04:59→19:30)
[2021-03-31 05:38] LABS: Basophils % 0.3 % (0.0-0.8); Hematocrit 31.8 VOL% (35.7-47.0); Hemoglobin 10.7 GM/DL (12.0-16.0); Immature Granulocytes % 2.9 %; Immature Granulocytes Absolute 0.18 #; Lymphocytes # 1.2 10*3/uL (1.4-4.0); Lymphocytes % 18.7 % (21.3-54.2); Mean Corpuscular HGB Conc 33.6 GM/DL (32-36); Mean Corpuscular Volume 89.8 FL (87-102); Mean Platelet Volume 9.3 FL (9.6-12.0); Monocytes % 5.9 % (1.7-12.7); NRBC # 0.02 10*3/uL; Neutrophils % 72.2 % (38.7-73.9); Platelet Count 268 T/CUMM (130-400); Red Blood Count 3.54 MC/CUMM (3.8-5.5); Red Cell Distribution Width 15.7 % (9.3-17.3); White Blood Count 6.2 T/CUMM (4-12)
[2021-03-31 05:47] LABS: Calcium 7.2 MG/DL (8.5-10.1); Osmolality,Calculated 283.8 MOS/KG (273-304); Potassium 3.6 MMOL/L (3.5-5.1)
[2021-03-31] MEDS: RIVAROXABAN 2.5 MG TABLET PO SCH ×2 (08:29→21:06)
[2021-03-31] MEDS: BISACODYL 5 MG TABLET PO SCH (08:29)
[2021-03-31] MEDS: FERROUS SULFATE 325 MG TABLET PO SCH ×3 (08:29→21:06)
[2021-03-31] MEDS: DOCUSATE SODIUM 100 MG CAPSULE PO SCH ×2 (08:29→21:06)
[2021-03-31] MEDS: PANTOPRAZOLE 40 MG VIAL IV SCH ×2 (08:30→21:07)
[2021-03-31] MEDS: methylPREDNISolone SOD SUC 40 MG/1 ML VIAL IV SCH ×2 (08:30→21:06)
[2021-03-31] MEDS: FLUTICASONE 50 MCG NASAL SPRAY 16 GM BOTTLE BOTH NARES SCH ×2 (08:33→21:07)
[2021-03-31] MEDS: TIMOLOL 0.5% OPH SOLN 5 ML BOTTLE LEFT EYE SCH ×2 (08:33→21:07)
[2021-03-31] MEDS: LIDOCAINE 5% PATCH TRANSDERM SCH (09:11)
[2021-03-31] MEDS: SODIUM CHLORIDE 0.9% 1,000 ML IV SCH ×2 (10:43→18:45)
[2021-03-31] MEDS: AZITHROMYCIN INJ 500 MG in SODIUM CHLORIDE 0.9% 250 ML IV SCH (12:22)
[2021-03-31] MEDS: CETIRIZINE 10 MG TABLET PO SCH (21:06)
[2021-03-31] MEDS: ATORVASTATIN 10 MG TABLET PO SCH (21:06)
[2021-03-31] MEDS: MELATONIN 3 MG TABLET PO SCH (21:06)
[2021-03-31] MEDS: LATANOPROST 0.005% OPH SOLN 2.5 ML BOTTLE RIGHT EYE SCH (21:07)
[2021-03-31] MEDS: GABAPENTIN 300 MG CAPSULE PO SCH (21:07)
[2021-04-01] MEDS: ALBUTEROL/IPRATROPIUM 3 ML NEB RESP TX SCH ×4 (00:38→20:35)
[2021-04-01] MEDS: SODIUM CHLORIDE 0.9% 1,000 ML IV SCH ×2 (01:17→04:12)
[2021-04-01 06:54] LABS: Hematocrit 32.7 VOL% (35.7-47.0); Hemoglobin 10.9 GM/DL (12.0-16.0); Mean Corpuscular HGB Conc 33.3 GM/DL (32-36); Mean Corpuscular Volume 89.8 FL (87-102); Platelet Count 276 T/CUMM (130-400); Red Blood Count 3.64 MC/CUMM (3.8-5.5); Red Cell Distribution Width 15.9 % (9.3-17.3); White Blood Count 6.6 T/CUMM (4-12)
[2021-04-01 06:55] LABS: Basophils % 0.2 % (0.0-0.8); Immature Granulocytes % 2.6 %; Immature Granulocytes Absolute 0.17 #; Lymphocytes # 1.1 10*3/uL (1.4-4.0); Lymphocytes % 16.9 % (21.3-54.2); Mean Platelet Volume 9.4 FL (9.6-12.0); Monocytes % 6.3 % (1.7-12.7)
[2021-04-01 07:12] LABS: Calcium 7.4 MG/DL (8.5-10.1); Potassium 3.4 MMOL/L (3.5-5.1)
[2021-04-01] MEDS: DOCUSATE SODIUM 100 MG CAPSULE PO SCH ×2 (09:13→21:46)
[2021-04-01] MEDS: FERROUS SULFATE 325 MG TABLET PO SCH ×3 (09:13→21:46)
[2021-04-01] MEDS: PANTOPRAZOLE 40 MG VIAL IV SCH (09:13)
[2021-04-01] MEDS: BISACODYL 5 MG TABLET PO SCH (09:13)
[2021-04-01] MEDS: FLUTICASONE 50 MCG NASAL SPRAY 16 GM BOTTLE BOTH NARES SCH ×2 (09:14→21:45)
[2021-04-01] MEDS: TIMOLOL 0.5% OPH SOLN 5 ML BOTTLE LEFT EYE SCH ×2 (09:14→21:45)
[2021-04-01] MEDS: LIDOCAINE 5% PATCH TRANSDERM SCH (09:15)
[2021-04-01] MEDS: methylPREDNISolone SOD SUC 40 MG/1 ML VIAL IV SCH (09:21)
[2021-04-01] MEDS: RIVAROXABAN 2.5 MG TABLET PO SCH ×2 (09:21→21:46)
[2021-04-01] MEDS: AZITHROMYCIN INJ 500 MG in SODIUM CHLORIDE 0.9% 250 ML IV SCH (12:33)
[2021-04-01] MEDS: MELATONIN 3 MG TABLET PO SCH (21:45)
[2021-04-01] MEDS: GABAPENTIN 300 MG CAPSULE PO SCH (21:46)
[2021-04-01] MEDS: ATORVASTATIN 10 MG TABLET PO SCH (21:47)
[2021-04-01] MEDS: CETIRIZINE 10 MG TABLET PO SCH (21:47)
[2021-04-02] MEDS: LATANOPROST 0.005% OPH SOLN 2.5 ML BOTTLE RIGHT EYE SCH ×2 (01:52→21:57)
[2021-04-02] MEDS: ALBUTEROL/IPRATROPIUM 3 ML NEB RESP TX SCH ×4 (05:06→19:09)
[2021-04-02 07:28] LABS: Osmolality,Calculated 282.8 MOS/KG (273-304); Potassium 2.9 MMOL/L (3.5-5.1)
[2021-04-02] MEDS: BISACODYL 5 MG TABLET PO SCH (08:45)
[2021-04-02] MEDS: FERROUS SULFATE 325 MG TABLET PO SCH ×3 (08:45→21:59)
[2021-04-02] MEDS: DOCUSATE SODIUM 100 MG CAPSULE PO SCH ×2 (08:45→22:00)
[2021-04-02] MEDS: LIDOCAINE 5% PATCH TRANSDERM SCH (08:45)
[2021-04-02] MEDS: POTASSIUM CHLORIDE 20 MEQ TABLET PO PRN ×4 (08:45→16:43)
[2021-04-02] MEDS: PANTOPRAZOLE 40 MG TABLET PO SCH ×2 (08:46→22:00)
[2021-04-02] MEDS: POTASSIUM CHLORIDE 20 MEQ TABLET PO SCH ×2 (08:46→22:00)
[2021-04-02] MEDS: FLUTICASONE 50 MCG NASAL SPRAY 16 GM BOTTLE BOTH NARES SCH ×2 (08:46→21:58)
[2021-04-02] MEDS: TIMOLOL 0.5% OPH SOLN 5 ML BOTTLE LEFT EYE SCH ×2 (08:46→21:58)
[2021-04-02] MEDS: RIVAROXABAN 2.5 MG TABLET PO SCH ×2 (09:42→21:59)
[2021-04-02] MEDS: SODIUM CHLORIDE 0.9% 1,000 ML IV SCH ×2 (11:12→11:13)
[2021-04-02] MEDS: MELATONIN 3 MG TABLET PO SCH (21:58)
[2021-04-02] MEDS: ATORVASTATIN 10 MG TABLET PO SCH (21:59)
[2021-04-02] MEDS: CETIRIZINE 10 MG TABLET PO SCH (22:00)
[2021-04-02] MEDS: GABAPENTIN 300 MG CAPSULE PO SCH (22:00)
[2021-04-03] MEDS: ALBUTEROL/IPRATROPIUM 3 ML NEB RESP TX SCH ×2 (01:22→07:28)
[2021-04-03 08:24] VITALS: BP 103/53
[2021-04-03] MEDS: TIMOLOL 0.5% OPH SOLN 5 ML BOTTLE LEFT EYE SCH (08:53)
[2021-04-03] MEDS: FLUTICASONE 50 MCG NASAL SPRAY 16 GM BOTTLE BOTH NARES SCH (08:53)
[2021-04-03] MEDS: FERROUS SULFATE 325 MG TABLET PO SCH (08:54)
[2021-04-03] MEDS: BISACODYL 5 MG TABLET PO SCH (08:54)
[2021-04-03] MEDS: PANTOPRAZOLE 40 MG TABLET PO SCH (08:54)
[2021-04-03] MEDS: POTASSIUM CHLORIDE 20 MEQ TABLET PO SCH (08:54)
[2021-04-03] MEDS: RIVAROXABAN 2.5 MG TABLET PO SCH (08:54)
[2021-04-03] MEDS: DOCUSATE SODIUM 100 MG CAPSULE PO SCH (08:54)
[2021-04-03] MEDS: POTASSIUM CHLORIDE 20 MEQ TABLET PO PRN (08:55)
[2021-04-03] MEDS: LIDOCAINE 5% PATCH TRANSDERM SCH (08:57)
== END 2021-04-03 11:20 | disposition swing bed (61) | DRG 982 ==
LOC: N.ED 11:39 → N.EDINP 15:00 → INTOOBSV 15:00 → N.4E 16:56
PROVIDERS: ADMIT Internal Medicine; ATTEND Internal Medicine